=== PATIENT | male | born 1995 | race Hispanic/Latino ===

== ENCOUNTER 2017-10-24 13:45 | Emergency (ER) | payer MEDICAID, OTHER ==
[2017-10-24 13:56] VITALS: BMI 25.8
[2017-10-24 13:58] VITALS: BP 103/56; PULSE 69; RESP 17; TEMP 98.5; O2SAT 98
[2017-10-24] MEDS ORDERED: Lidocaine 5% Patch TD STA (14:29)
--- NOTE | 2017-10-24 14:35 | ED PDOC ---
HPI: General Adult Time Seen by Provider: 10/24/17 14:09 Chief Complaint (Nursing): Back Pain History Per: Patient Additional Complaint(s): Pt. states this morning he woke up with L sided lower back pain which he's been getting intermittently for the past 2 years. States he's been evaluated by a chiropractor for it in the past but has never had any imaging. States pain usually does come about when the weather gets cold. Denies trauma, numbness, tingling, incontinence (stool/urinary), hematuria, dysuria, leg pain, radiation of pain, chest pain, SOB. Of note, pt. has not taken any medications to help relieve symptoms today. Past Medical History Reviewed: Historical Data, Nursing Documentation, Vital Signs Vital Signs: Last Vital Signs Temp 98.5 F 10/24/17 13:56 Pulse 69 10/24/17 13:56 Resp 17 10/24/17 13:56 BP 103/56 L 10/24/17 13:56 Pulse Ox 98 10/24/17 13:56 - Family History Family History: States: No Known Family Hx - Immunization History Hx Tetanus Toxoid Vaccination: No Hx Influenza Vaccination: No Hx Pneumococcal Vaccination: No - Home Medications Home Medications: Ambulatory Orders Medication Instructions Recorded Cyclobenzaprine [Cyclobenzaprine 10 mg PO Q8 PRN #10 tab 10/24/17 HCl] Naproxen [Naprosyn] 500 mg PO BID PRN #10 tab 10/24/17 - Allergies Allergies/Adverse Reactions: Allergies Allergy/AdvReac Type Severity Reaction Status Date / Time No Known Allergies Allergy Verified 09/20/14 20:07 Review of Systems ROS Statement: Except As Marked, All Systems Reviewed And Found Negative Musculoskeletal: Positive for: Back Pain Physical Exam - Physical Exam Appears: Positive for: Well, Non-toxic, No Acute Distress Skin: Positive for: Normal Color, Warm. Negative for: Rash Eye Exam: Positive for: Normal appearance Cardiovascular/Chest: Positive for: Regular Rate, Rhythm Respiratory: Positive for: CNT, Normal Breath Sounds Gastrointestinal/Abdominal: Positive for: Normal Exam, Soft. Negative for: Tenderness Back: Positive for: Normal Inspection, Muscle Spasm (L paralumbar tenderness). Negative for: L CVA Tenderness, R CVA Tenderness, Vertebral Tenderness Extremity: Positive for: Normal ROM Neurologic/Psych: Positive for: Alert, Oriented - ECG O2 Sat by Pulse Oximetry: 98 - Progress ED Course And Treament: Toradol 15mg IM, flexeril 10mg PO, lidoderm patch ordered. Disposition - Clinical Impression Clinical Impression: Chronic low back pain - Patient ED Disposition Is Patient to be Admitted: No - Disposition Referrals: [facility] [Outside] Disposition: Routine/Home Disposition Time: 14:37 Condition: STABLE Additional Instructions: Follow up with [facility] for further evaluation. Prescriptions: Cyclobenzaprine [Cyclobenzaprine HCl] 10 mg PO Q8 PRN #10 tab PRN Reason: Muscle Spasm Naproxen [Naprosyn] 500 mg PO BID PRN #10 tab PRN Reason: Pain Instructions: Low Back Pain in Adults Forms: [facility] (Amharic), [facility] ED School/Work Excuse
[2017-10-24] MEDS ORDERED: Lidocaine 5% Patch TD ONE (14:52)
== END 2017-10-24 15:52 | disposition home or self-care (01) ==
LOC: H.ER 13:45
DX: G89.29 Other chronic pain (principal)
CPT/HCPCS: 96372; 99281; J1885

== ENCOUNTER 2017-12-07 19:42 | Emergency (ER) | payer OTHER ==
[2017-12-07 19:42] VITALS: BMI 25.8
[2017-12-07 20:01] VITALS: BP 101/53; PULSE 63; RESP 18; TEMP 98.3; O2SAT 100
[2017-12-07] MEDS ORDERED: Lidocaine 5% Patch TD STA (20:22)
--- NOTE | 2017-12-07 21:05 | ED PDOC ---
HPI: Back Time Seen by Provider: 12/07/17 20:06 Chief Complaint (Nursing): Back Pain Chief Complaint (Provider): Back Pain History Per: Patient History/Exam Limitations: no limitations Onset/Duration Of Symptoms: Days (x1) Current Symptoms Are (Timing): Still Present Additional Complaint(s): 22 year old male presents to the emergency department with a complaint of left- sided lower back pain ongoing intermittently for 2 years but worsen upon waking up this morning. He denies any trauma, radiation of pain, dysuria, incontinence , diarrhea, constipation, nausea or vomiting. Patient was recently seen in ED last month for similar episode, in which, he states symptoms improved on medications but did not follow up with PMD or specialists as recommended. 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 PMD: none provided Past Medical History Reviewed: Historical Data, Nursing Documentation, Vital Signs Vital Signs: Last Vital Signs Temp 98.3 F 12/07/17 19:56 Pulse 63 12/07/17 19:56 Resp 18 12/07/17 19:56 BP 101/53 L 12/07/17 19:56 Pulse Ox 100 12/07/17 19:56 - Medical History PMH: No Chronic Diseases - Surgical History Surgical History: No Surg Hx - Family History Family History: States: Unknown Family Hx - Social History Current smoker - smoking cessation education provided: No Alcohol: Occasional Drugs: Cannabis - Immunization History Hx Tetanus Toxoid Vaccination: No Hx Influenza Vaccination: No Hx Pneumococcal Vaccination: No - Home Medications Home Medications: Ambulatory Orders Medication Instructions Recorded Cyclobenzaprine [Cyclobenzaprine 10 mg PO Q8 PRN #10 tab 10/24/17 HCl] Naproxen [Naprosyn] 500 mg PO BID PRN #10 tab 10/24/17 Cyclobenzaprine [Cyclobenzaprine 10 mg PO Q8 PRN #30 tab 12/07/17 HCl] Meloxicam [Mobic] 7.5 mg PO DAILY PRN #30 tab 12/07/17 - Allergies Allergies/Adverse Reactions: Allergies Allergy/AdvReac Type Severity Reaction Status Date / Time No Known Allergies Allergy Verified 09/20/14 20:07 Review of Systems ROS Statement: Except As Marked, All Systems Reviewed And Found Negative Gastrointestinal: Negative for: Nausea, Vomiting, Diarrhea, Constipation Genitourinary Male: Negative for: Dysuria, Incontinence Musculoskeletal: Positive for: Back Pain (lower left). Negative for: Other ( trauma) Physical Exam - Reviewed Nursing Documentation Reviewed: Yes Vital Signs Reviewed: Yes - Physical Exam Appears: Positive for: Non-toxic, No Acute Distress Gastrointestinal/Abdominal: Positive for: Normal Exam, Soft. Negative for: Tenderness Back: Positive for: Muscle Spasm (left-sided). Negative for: L CVA Tenderness, R CVA Tenderness, Vertebral Tenderness Neurologic/Psych: Positive for: Alert (x3), Oriented. Negative for: Motor/ Sensory Deficits - ECG O2 Sat by Pulse Oximetry: 100 (RA) Pulse Ox Interpretation: Normal Medical Decision Making Medical Decision Making: Initial Impression: Back pain Initial Plan: * Flexeril 10mg PO * Lidoderm * Toradol 15mg IM Scribe Attestation: Documented by Lisa Bullard, acting as a scribe for Zander Lynn PA-C. Provider Scribe Attestation: All medical record entries made by the Scribe were at my direction and personally dictated by me. I have reviewed the chart and agree that the record accurately reflects my personal performance of the history, physical exam, medical decision making, and the department course for this patient. I have also personally directed, reviewed, and agree with the discharge instructions and disposition. Disposition - Clinical Impression Clinical Impression: Low back pain - Patient ED Disposition Is Patient to be Admitted: No - Disposition Referrals: [facility] [Outside] Disposition: Routine/Home Disposition Time: 21:30 Condition: IMPROVED Prescriptions: Cyclobenzaprine [Cyclobenzaprine HCl] 10 mg PO Q8 PRN #30 tab PRN Reason: Muscle Spasm Meloxicam [Mobic] 7.5 mg PO DAILY PRN #30 tab PRN Reason: Pain, Mild (1-3) Instructions: Low Back Pain (DC) Forms: [facility] (Mauritanian), [facility] ED School/Work Excuse Print Language: GERMAN
[2017-12-07] MEDS ORDERED: Lidocaine 5% Patch TD ONE (21:14)
== END 2017-12-07 21:50 | disposition home or self-care (01) ==
LOC: H.ER 19:42
DX: M54.5 Low back pain (principal)
CPT/HCPCS: 96372; 99282; J1885

== ENCOUNTER 2018-01-08 23:21 | Emergency (ER) | payer OTHER ==
[2018-01-08 23:22] VITALS: BMI 25.8
[2018-01-08 23:34] VITALS: BP 111/67; PULSE 66; RESP 16; TEMP 98.2; O2SAT 99
--- NOTE | 2018-01-09 00:02 | ED PDOC ---
HPI: Skin/Bite Injury Time Seen by Provider: 01/08/18 23:39 Chief Complaint (Nursing): Abnormal Skin Integrity Chief Complaint (Provider): right arm pain History Per: Patient History/Exam Limitations: no limitations Onset/Duration Of Symptoms: Days (1) Current Symptoms Are (Timing): Still Present Quality Of Symptoms: Painful Additional Complaint(s): 22 y/o male presents for evaluation of painful lump to right arm x 1 day. Denies fever, drainage from site, numbness/weakness right upper extremity, limitation of movement. Past Medical History Reviewed: Historical Data, Nursing Documentation, Vital Signs Vital Signs: Last Vital Signs Temp 98.2 F 01/08/18 23:29 Pulse 66 01/08/18 23:29 Resp 16 01/08/18 23:29 BP 111/67 01/08/18 23:29 Pulse Ox 99 01/08/18 23:29 - Medical History PMH: No Chronic Diseases - Surgical History Surgical History: No Surg Hx - Family History Family History: States: Unknown Family Hx - Immunization History Hx Tetanus Toxoid Vaccination: No Hx Influenza Vaccination: No Hx Pneumococcal Vaccination: No - Home Medications Home Medications: Ambulatory Orders Medication Instructions Recorded Cyclobenzaprine [Cyclobenzaprine 10 mg PO Q8 PRN #10 tab 10/24/17 HCl] Naproxen [Naprosyn] 500 mg PO BID PRN #10 tab 10/24/17 Cyclobenzaprine [Cyclobenzaprine 10 mg PO Q8 PRN #30 tab 12/07/17 HCl] Meloxicam [Mobic] 7.5 mg PO DAILY PRN #30 tab 12/07/17 Cephalexin [Keflex] 500 mg PO Q6 #27 capsule 01/09/18 - Allergies Allergies/Adverse Reactions: Allergies Allergy/AdvReac Type Severity Reaction Status Date / Time No Known Allergies Allergy Verified 01/08/18 23:29 Review of Systems ROS Statement: Except As Marked, All Systems Reviewed And Found Negative Musculoskeletal: Positive for: Arm Pain Skin: Positive for: Lesions Physical Exam - Reviewed Nursing Documentation Reviewed: Yes Vital Signs Reviewed: Yes - Physical Exam Appears: Positive for: Well, Non-toxic, No Acute Distress Skin: Positive for: Normal Color, Rash (palpable tender lump noted medial aspect right upper arm; mild surrounding erythema. No drainage, fluctuance) Extremity: Positive for: Normal ROM - ECG O2 Sat by Pulse Oximetry: 99 - Progress ED Course And Treament: Patient educated on findings, discharged with rx Keflex (dose given in ED) Advised warm compresses Ibuprofen/tylenol PRN pain. Return precautions given Disposition - Clinical Impression Clinical Impression: Abscess - Patient ED Disposition Is Patient to be Admitted: No Counseled Patient/Family Regarding: Studies Performed, Diagnosis, Need For Followup, Rx Given - Disposition Referrals: Herrera Mccoy MD [Primary Care Provider] - Disposition: Routine/Home Disposition Time: 00:03 Condition: IMPROVED Prescriptions: Cephalexin [Keflex] 500 mg PO Q6 #27 capsule Instructions: Skin Abscess Forms: [facility] (Anguillan), [facility] ED School/Work Excuse
== END 2018-01-09 00:27 | disposition home or self-care (01) ==
LOC: H.ER 23:21
DX: L02.413 Cutaneous abscess of right upper limb (principal)

== ENCOUNTER 2018-03-05 19:28 | Emergency (ER) | payer OTHER ==
[2018-03-05 19:49] VITALS: BMI 22.6
[2018-03-05 19:52] VITALS: BP 100/58; PULSE 60; RESP 19; TEMP 98.3; O2SAT 100
--- NOTE | 2018-03-05 20:25 | ED PDOC ---
HPI: Headache Time Seen by Provider: 03/05/18 19:53 Chief Complaint (Nursing): Headache Chief Complaint (Provider): headache History Per: Patient History/Exam Limitations: no limitations Onset/Duration Of Symptoms: Days (x1) Current Symptoms Are (Timing): Better Additional Complaint(s): Dionte Edmonds is a 23 year old male, with no significant past medical history, who presents to the emergency department complaining of a headache associated with dizziness and light sensitivity onset since yesterday. Patient states around 20:00 yesterday he developed a frontal headache, he took Excedrin at 22: 30 with no relief. However, he decided to rest today with improvement of symptoms. Patient also reports he hasn't been sleeping well and states he recently began working overnight. He did not take any medications prior to arrival. Patient denies any recent history of migraines but states he used to have them when he was young. He denies any current headache, dizziness, vision changes, nausea, vomit or other medical complaints. PMD: None provided. Past Medical History Reviewed: Historical Data, Nursing Documentation, Vital Signs Vital Signs: Last Vital Signs Temp 98.3 F 03/05/18 19:49 Pulse 60 03/05/18 19:49 Resp 19 03/05/18 19:49 BP 100/58 L 03/05/18 19:49 Pulse Ox 100 03/05/18 19:49 - Medical History PMH: No Chronic Diseases - Surgical History Surgical History: No Surg Hx - Family History Family History: States: Unknown Family Hx - Social History Current smoker - smoking cessation education provided: No Alcohol: Social Drugs: Cannabis - Immunization History Hx Tetanus Toxoid Vaccination: No Hx Influenza Vaccination: No Hx Pneumococcal Vaccination: No - Home Medications Home Medications: Ambulatory Orders Medication Instructions Recorded Cyclobenzaprine [Cyclobenzaprine 10 mg PO Q8 PRN #10 tab 10/24/17 HCl] Naproxen [Naprosyn] 500 mg PO BID PRN #10 tab 10/24/17 Cyclobenzaprine [Cyclobenzaprine 10 mg PO Q8 PRN #30 tab 12/07/17 HCl] Meloxicam [Mobic] 7.5 mg PO DAILY PRN #30 tab 12/07/17 Cephalexin [Keflex] 500 mg PO Q6 #27 capsule 01/09/18 - Allergies Allergies/Adverse Reactions: Allergies Allergy/AdvReac Type Severity Reaction Status Date / Time No Known Allergies Allergy Verified 01/08/18 23:29 Review of Systems ROS Statement: Except As Marked, All Systems Reviewed And Found Negative Eyes: Negative for: Vision Change Gastrointestinal: Negative for: Nausea, Vomiting Neurological: Negative for: Headache (resolved), Dizziness (resolved) Physical Exam - Reviewed Nursing Documentation Reviewed: Yes Vital Signs Reviewed: Yes - Physical Exam Appears: Positive for: Non-toxic, No Acute Distress Head Exam: Positive for: ATRAUMATIC, NORMAL INSPECTION, NORMOCEPHALIC Skin: Positive for: Normal Color, Warm, Dry Eye Exam: Positive for: Normal appearance, EOMI, PERRL ENT: Positive for: Normal ENT Inspection Neck: Positive for: Painless ROM Cardiovascular/Chest: Positive for: Regular Rate, Rhythm. Negative for: Murmur Respiratory: Positive for: Normal Breath Sounds. Negative for: Respiratory Distress Extremity: Positive for: Normal ROM (upper and lower extremities). Negative for : Deformity, Swelling Neurologic/Psych: Positive for: Alert, Oriented, Gait (steady). Negative for: Motor/Sensory Deficits - ECG O2 Sat by Pulse Oximetry: 100 (RA) Pulse Ox Interpretation: Normal Medical Decision Making Medical Decision Making: Time: 19:53 Initial Impression: headache Initial Plan: imaging studies not clinically indicated at this time pt without any physical complaints at this time, no medical intervention needed Scribe Attestation: Documented by Doron Garcia, acting as a scribe for Otilia Wilkinson PA-C Provider Scribe Attestation: All medical record entries made by the Scribe were at my direction and personally dictated by me. I have reviewed the chart and agree that the record accurately reflects my personal performance of the history, physical exam, medical decision making, and the department course for this patient. I have also personally directed, reviewed, and agree with the discharge instructions and disposition. Disposition - Clinical Impression Clinical Impression: Headache - Disposition Disposition: Routine/Home Disposition Time: 20:46 Condition: STABLE Instructions: Tension Headache Forms: [facility] (Luxembourgish), [facility] ED School/Work Excuse
== END 2018-03-05 21:33 | disposition home or self-care (01) ==
LOC: H.ER 19:28
DX: R51 Headache (principal); R42 Dizziness and giddiness

== ENCOUNTER 2018-03-20 13:42 | Emergency (ER) | payer MEDICAID, OTHER ==
[2018-03-20 13:42] VITALS: BMI 22.6
[2018-03-20 13:50] VITALS: BP 109/66; PULSE 67; RESP 19; TEMP 98.2; O2SAT 96
[2018-03-20] MEDS: Sodium Chloride 0.9% 1,000 ML IV STA (15:01)
[2018-03-20 15:42] LABS: BASO % 0.3 % (0.0-2.0); EOS # 0.1 K/uL (0.0-0.7); EOS % 0.9 % (0.0-4.0); HEMOGLOBIN 15.5 g/dL (12.0-18.0); LYMPH # 0.9 K/uL (1.0-4.3); LYMPH % 6.3 % (20.0-40.0); MEAN CELL VOLUME 86.1 fl (80.0-94.0); MEAN CORPUSCULAR HGB CONC 32.5 g/dL (33.0-37.0); MEAN PLATELET VOLUME 9.9 fl (7.2-11.7); MONO # 0.8 K/uL (0.0-0.8); MONO % 5.9 % (0.0-10.0); NEUT # 11.7 K/uL (1.8-7.0); NEUT % 86.6 % (50.0-75.0); NRBC % 0.1 % (0.0-0.0); PLATELET COUNT 183 K/uL (130-400); RBC 5.55 Mil/uL (4.40-5.90); RED CELL DISTRIBUTION WIDTH 15.9 % (11.5-14.5); WHITE BLOOD COUNT 13.6 K/uL (4.8-10.8)
--- NOTE | 2018-03-20 16:14 | ED PDOC ---
HPI: Abdomen Time Seen by Provider: 03/20/18 14:10 Chief Complaint (Nursing): Abdominal Pain Chief Complaint (Provider): abdominal pain History Per: Patient History/Exam Limitations: no limitations Onset/Duration Of Symptoms: Days (x3) Outside of [place] travel?: No Current Symptoms Are (Timing): Still Present Location Of Pain/Discomfort: Other (lower) Quality Of Discomfort: Cramping Associated Symptoms: Diarrhea (non bloody). denies: Fever, Chills, Nausea, Vomiting Additional Complaint(s): Dionte Edmonds is a 23 year old male, with no significant past medical history, who presents to the emergency department complaining of a crampy lower abdominal pain associated with multiple episodes of non bloody diarrhea onset for the past x3 days. Patient denies any vomiting, nausea, fever, chills, melena , hematochezia, sick contacts or recent travel. No further medical complaints. PMD: Herrera Mccoy Past Medical History Reviewed: Historical Data, Nursing Documentation, Vital Signs Vital Signs: Last Vital Signs Temp 98.2 F 03/20/18 13:48 Pulse 67 03/20/18 13:48 Resp 19 03/20/18 13:48 BP 109/66 03/20/18 13:48 Pulse Ox 96 03/20/18 19:03 - Medical History PMH: No Chronic Diseases - Surgical History Surgical History: No Surg Hx - Family History Family History: States: Unknown Family Hx - Social History Current smoker - smoking cessation education provided: No Alcohol: Social Drugs: Cannabis - Immunization History Hx Tetanus Toxoid Vaccination: No Hx Influenza Vaccination: No Hx Pneumococcal Vaccination: No - Home Medications Home Medications: Ambulatory Orders Medication Instructions Recorded Cyclobenzaprine [Cyclobenzaprine 10 mg PO Q8 PRN #10 tab 10/24/17 HCl] Naproxen [Naprosyn] 500 mg PO BID PRN #10 tab 10/24/17 Cyclobenzaprine [Cyclobenzaprine 10 mg PO Q8 PRN #30 tab 12/07/17 HCl] Meloxicam [Mobic] 7.5 mg PO DAILY PRN #30 tab 12/07/17 Cephalexin [Keflex] 500 mg PO Q6 #27 capsule 01/09/18 Ciprofloxacin [Cipro] 500 mg PO BID #14 tab 03/20/18 Dicyclomine [Bentyl] 20 mg PO TID PRN #15 tab 03/20/18 metroNIDAZOLE [Flagyl] 500 mg PO TID #21 tab 03/20/18 - Allergies Allergies/Adverse Reactions: Allergies Allergy/AdvReac Type Severity Reaction Status Date / Time No Known Allergies Allergy Verified 03/20/18 13:48 Review of Systems ROS Statement: Except As Marked, All Systems Reviewed And Found Negative Constitutional: Negative for: Fever, Chills Gastrointestinal: Positive for: Abdominal Pain (lower crampy), Diarrhea (non bloody). Negative for: Nausea, Vomiting, Melena, Hematochezia Physical Exam - Reviewed Nursing Documentation Reviewed: Yes Vital Signs Reviewed: Yes - Physical Exam Appears: Positive for: No Acute Distress Head Exam: Positive for: ATRAUMATIC, NORMAL INSPECTION, NORMOCEPHALIC Skin: Positive for: Normal Color, Warm, Dry. Negative for: Rash Eye Exam: Positive for: Normal appearance, EOMI, PERRL ENT: Positive for: Normal ENT Inspection (mucous membrane moist) Neck: Positive for: Painless ROM Cardiovascular/Chest: Positive for: Regular Rate, Rhythm. Negative for: Murmur Respiratory: Positive for: Normal Breath Sounds. Negative for: Respiratory Distress Gastrointestinal/Abdominal: Positive for: Normal Exam, Soft. Negative for: Tenderness Extremity: Positive for: Normal ROM (upper and lower extremities). Negative for : Deformity, Swelling Neurologic/Psych: Positive for: Alert, Oriented (x3). Negative for: Motor/ Sensory Deficits - Laboratory Results Result Diagrams: 03/20/18 15:35 03/20/18 15:35 - ECG O2 Sat by Pulse Oximetry: 96 (RA) Pulse Ox Interpretation: Normal Medical Decision Making Medical Decision Making: Time: 14:10 Initial Impression: abdominal pain Initial Plan: --CMP --CBC w/ differential --Bentyl 20 mg PO --Sodium Chloride 1,000 ml IV 1,000 mls/hr --Urinalysis --Reevaluation WBC: 13.6 Pt. reports abd pain has improved drastically but is still present. CT abd/pelvis w/ IV contrast ordered. 1728 CT abd/pelvis w/ IV contrast: Findings consistent with enterocolitis without mechanical obstruction. Cipro IV, flagyl IV, blood culture x 2 ordered. Pt. refused to wait for flagyl IV to finish and to start cipro IV. No diarrhea while in ED. ----- Scribe Attestation: Documented by Doron Garcia, acting as a scribe for Zander Lynn PA-C. Provider Scribe Attestation: All medical record entries made by the Scribe were at my direction and personally dictated by me. I have reviewed the chart and agree that the record accurately reflects my personal performance of the history, physical exam, medical decision making, and the department course for this patient. I have also personally directed, reviewed, and agree with the discharge instructions and disposition. Disposition - Clinical Impression Clinical Impression: Enterocolitis - Patient ED Disposition Is Patient to be Admitted: No - Disposition Referrals: [facility] [Outside] [facility] [Outside] Disposition: Routine/Home Disposition Time: 17:30 Condition: IMPROVED Additional Instructions: DIONTE EDMONDS, thank you for letting us take care of you today. Your provider was Phylicia Mahoney MD and you were treated for ABD PAIN. The emergency medical care you received today was directed at your acute symptoms. If you were prescribed any medication, please fill it and take as directed. It may take several days for your symptoms to resolve. Return to the Emergency Department if your symptoms worsen, do not improve, or if you have any other problems. Please contact your doctor or call one of the physicians/clinics you have been referred to that are listed on the Patient Visit Information form that is included in your discharge packet. Bring any paperwork you were given at discharge with you along with any medications you are taking to your follow up visit. Our treatment cannot replace ongoing medical care by a primary care provider outside of the emergency department. Thank you for allowing the [facility] team to be part of your care today. If you had an X-Ray or CT scan: A Radiologist will review the ED reading if any change in treatment is needed we will contact you. If you had a blood, urine, or wound culture: It will take several days for the results, if any change in treatment is needed we will contact you. If you had an STI test: It will take 48 hours for the results. Please call after 1 week if you have not heard back. Prescriptions: Ciprofloxacin [Cipro] 500 mg PO BID #14 tab Dicyclomine [Bentyl] 20 mg PO TID PRN #15 tab PRN Reason: abdominal pain metroNIDAZOLE [Flagyl] 500 mg PO TID #21 tab Instructions: Diarrhea in Adolescents and Adults Forms: [employer] (Romanian), [facility] ED School/Work Excuse Print Language: BERMUDIAN
[2018-03-20] MEDS ORDERED: Iohexol 300 100 ML IJ ONE (16:21)
[2018-03-20] MEDS ORDERED: Sodium Chloride 0.9% 50 ML IV ONE (16:21)
[2018-03-20 16:32] LABS: ALB/GLOB RATIO 1.3 (1.0-2.1); ALT/SGPT 25 U/L (21-72); AST/SGOT 26 U/L (17-59); BLOOD UREA NITROGEN 15 mg/dl (9-20); CALCIUM 9.8 mg/dL (8.4-10.2); GFR AFRICAN-AMERICAN > 60; GFR NON-AFRICAN AMERICAN > 60
[2018-03-20 17:17] LABS: BANDS 1 % (0-2); BASOPHIL 1 % (0-2); EOSINOPHIL 1 % (0-7); HYPERSEGMENTATION PRESENT; LYMPHOCYTE 14 % (20-50); MONOCYTE 6 % (0-10); NEUTROPHIL 77 % (42-75); PLATELET ESTIMATE NORMAL (NORMAL); TOTAL CELLS COUNTED 100
[2018-03-20 17:18] LABS: MICROCYTOSIS SLIGHT
--- NOTE | 2018-03-20 17:31 | CT ---
Date of service: 03/20/2018 PROCEDURE: CT Abdomen and Pelvis with contrast HISTORY: b/l lower abdominal pain, diarrhea, leukocytosis COMPARISON: 03/26/2016 TECHNIQUE: Contrast dose: 90 cc Omnipaque 300 Radiation dose: Total exam DLP = 291.31 mGy-cm. This CT exam was performed using one or more of the following dose reduction techniques: Automated exposure control, adjustment of the mA and/or kV according to patient size, and/or use of iterative reconstruction technique. FINDINGS: LOWER THORAX: Unremarkable. LIVER: Unremarkable. No gross lesion or ductal dilatation. GALLBLADDER AND BILE DUCTS: Unremarkable. PANCREAS: Unremarkable. No gross lesion or ductal dilatation. SPLEEN: Unremarkable. ADRENALS: Unremarkable. No mass. KIDNEYS AND URETERS: Unremarkable. No hydronephrosis. No solid mass. VASCULATURE: Unremarkable. No aortic aneurysm. BOWEL: Fluid-filled loops of small bowel and colon consistent with diarrheal state. Contrast-enhancing characteristics of small bowel and colon suggests enterocolitis. This is diffuse without a focal abnormality. There is no evidence of mechanical obstruction. APPENDIX: Normal appendix. PERITONEUM: Unremarkable. No free fluid. No free air. LYMPH NODES: Unremarkable. No enlarged lymph nodes. BLADDER: Unremarkable. REPRODUCTIVE: Unremarkable. BONES: No acute fracture. OTHER FINDINGS: None. IMPRESSION: Findings consistent with enterocolitis without mechanical obstruction.
[2018-03-20] MEDS ORDERED: metroNIDAZOLE 500mg/100ml NS 100 ML IVPB ONE (18:02)
[2018-03-20] MEDS: metroNIDAZOLE 500mg/100ml NS 100 ML IVPB STA (18:06)
[2018-03-20] MEDS: Ciprofloxacin 400mg/200ml D5W 400 MG/200 ML BAG IVPB STA (19:06)
== END 2018-03-20 19:07 | disposition home or self-care (01) ==
LOC: H.ER 13:42
DX: K52.9 Noninfective gastroenteritis and colitis, unspecified (principal)
CPT/HCPCS: 74177; 80053; 85025; 87040; 99283; J7030; Q9967

== ENCOUNTER 2018-04-19 10:40 | Emergency (ER) | payer SELFPAY ==
[2018-04-19 10:43] VITALS: BMI 24.2
--- NOTE | 2018-04-19 10:55 | ED PDOC ---
HPI: General Adult Time Seen by Provider: 04/19/18 10:54 Chief Complaint (Provider): vomiting History Per: Patient Additional Complaint(s): 23-year-old male presents with vomiting and diarrhea that started last night. Patient states symptoms began after he ate a frozen dinner. He denies fever or chills. Patient vomited 3 times this morning but was able to tolerate some juice since emesis. He rates abdominal pain as a 4 out of 10. Denies recent travel. He denies any blood in stool. Patient states it gastroenteritis about one month ago and today symptoms feel similar to that. PMD: Dr. Mccoy, [facility] Past Medical History Reviewed: Historical Data, Nursing Documentation, Vital Signs Vital Signs: Last Vital Signs Temp 98 F 04/19/18 10:43 Pulse 69 04/19/18 10:43 Resp 20 04/19/18 10:43 BP 133/65 04/19/18 10:43 Pulse Ox 99 04/19/18 12:54 - Medical History PMH: No Chronic Diseases - Surgical History Surgical History: No Surg Hx - Family History Family History: States: No Known Family Hx - Living Arrangements Living Arrangements: With Friends/Others - Social History Current smoker - smoking cessation education provided: No Alcohol: None Drugs: Cannabis - Home Medications Home Medications: Ambulatory Orders Medication Instructions Recorded Cyclobenzaprine [Cyclobenzaprine 10 mg PO Q8 PRN #10 tab 10/24/17 HCl] Naproxen [Naprosyn] 500 mg PO BID PRN #10 tab 10/24/17 Cyclobenzaprine [Cyclobenzaprine 10 mg PO Q8 PRN #30 tab 12/07/17 HCl] Meloxicam [Mobic] 7.5 mg PO DAILY PRN #30 tab 12/07/17 Cephalexin [Keflex] 500 mg PO Q6 #27 capsule 01/09/18 Ciprofloxacin [Cipro] 500 mg PO BID #14 tab 03/20/18 Dicyclomine [Bentyl] 20 mg PO TID PRN #15 tab 03/20/18 metroNIDAZOLE [Flagyl] 500 mg PO TID #21 tab 03/20/18 Dicyclomine [Bentyl] 10 mg PO QID PRN #20 cap 04/19/18 Ondansetron [Zofran Odt] 4 mg PO ASDIR PRN #20 odt 04/19/18 - Allergies Allergies/Adverse Reactions: Allergies Allergy/AdvReac Type Severity Reaction Status Date / Time No Known Allergies Allergy Verified 03/20/18 13:48 Review of Systems ROS Statement: Except As Marked, All Systems Reviewed And Found Negative Constitutional: Negative for: Fever, Chills, Weakness Respiratory: Negative for: Cough Gastrointestinal: Positive for: Nausea, Vomiting, Abdominal Pain, Diarrhea. Negative for: Constipation, Melena, Hematochezia, Hematemesis, Rectal Pain Genitourinary Male: Negative for: Dysuria Physical Exam - Reviewed Nursing Documentation Reviewed: Yes Vital Signs Reviewed: Yes - Physical Exam Appears: Positive for: Well, Non-toxic, No Acute Distress Skin: Positive for: Normal Color. Negative for: Rash Eye Exam: Positive for: Normal appearance Cardiovascular/Chest: Positive for: Regular Rate, Rhythm Respiratory: Positive for: Normal Breath Sounds. Negative for: Wheezing, Respiratory Distress Gastrointestinal/Abdominal: Positive for: Soft. Negative for: Tenderness, Distended, Guarding, Rebound Back: Negative for: L CVA Tenderness, R CVA Tenderness Extremity: Positive for: Normal ROM Neurologic/Psych: Positive for: Alert, Oriented - Laboratory Results Result Diagrams: 04/19/18 11:30 04/19/18 11:30 Urine dip results: Negative for: Leukocyte Esterase, Blood, Nitrate, Ketones, Glucose, Bilirubin, Protein - ECG O2 Sat by Pulse Oximetry: 99 Pulse Ox Interpretation: Normal Medical Decision Making Medical Decision Makin23 year old with vomiting and diarrhea Plan: CBC CMP Lipase urine dip IVF IV zofran Patient states he feels better after meds were given. Nausea has resolved. Patient able to tolerate juice and water in ED with no further emesis. Prescription in for Zofran and Bentyl provided. [place] diet instructions given. Patient was advised to follow up with PMD in 2-3 days or return to ED any time if acutely worse. Disposition - Clinical Impression Clinical Impression: Gastroenteritis - Patient ED Disposition Is Patient to be Admitted: No Counseled Patient/Family Regarding: Studies Performed, Diagnosis, Need For Followup, Rx Given - Disposition Referrals: Herrera Mccoy MD [Family Provider] - Disposition: Routine/Home Disposition Time: 12:52 Condition: STABLE Additional Instructions: Take prescription meds as directed. Follow bland diet and drink plenty of clear liquids. Follow-up with primary doctor in 2-3 days or return to emergency room any time if acutely worse. Prescriptions: Dicyclomine [Bentyl] 10 mg PO QID PRN #20 cap PRN Reason: Gi Distress Ondansetron [Zofran Odt] 4 mg PO ASDIR PRN #20 odt PRN Reason: Nausea/Vomiting Instructions: [place] Diet, Viral Gastroenteritis, Adult (DC) Forms: [facility] ED School/Work Excuse Results - Lab Results Lab Results: 04/19/18 04/19/18 11:30 11:30 WBC 8.4 RBC 5.13 Hgb 14.4 Hct 43.8 MCV 85.5 MCH 28.0 MCHC 32.8 L RDW 15.2 H Plt Count 154 MPV 9.9 Neut % (Auto) 65.8 Lymph % (Auto) 25.1 Emanuel % (Auto) 6.9 Eos % (Auto) 1.4 Baso % (Auto) 0.8 Neut # (Auto) 5.5 Lymph # (Auto) 2.1 Emanuel # (Auto) 0.6 Eos # (Auto) 0.1 Baso # (Auto) 0.1 Sodium 141 Potassium 4.5 Chloride 104 Carbon Dioxide 28 Anion Gap 14 BUN 14 Creatinine 0.9 Est GFR ( Amer) > 60 Est GFR (Non-Af Amer) > 60 Random Glucose 100 Calcium 9.7 Total Bilirubin 0.3 AST 16 L D ALT 25 Alkaline Phosphatase 50 Total Protein 7.7 Albumin 4.7 Globulin 3.0 Albumin/Globulin Ratio 1.6 Lipase 91
[2018-04-19] MEDS: Sodium Chloride 0.9% 1,000 ML IV STA (11:28)
[2018-04-19 11:40] LABS: BASO # 0.1 K/uL (0.0-0.2); BASO % 0.8 % (0.0-2.0); EOS # 0.1 K/uL (0.0-0.7); EOS % 1.4 % (0.0-4.0); HEMOGLOBIN 14.4 g/dL (12.0-18.0); LYMPH # 2.1 K/uL (1.0-4.3); LYMPH % 25.1 % (20.0-40.0); MEAN CELL VOLUME 85.5 fl (80.0-94.0); MEAN CORPUSCULAR HGB CONC 32.8 g/dL (33.0-37.0); MEAN PLATELET VOLUME 9.9 fl (7.2-11.7); MONO # 0.6 K/uL (0.0-0.8); MONO % 6.9 % (0.0-10.0); NEUT # 5.5 K/uL (1.8-7.0); NEUT % 65.8 % (50.0-75.0); NRBC % 0.1 % (0.0-0.0); RBC 5.13 Mil/uL (4.40-5.90); RED CELL DISTRIBUTION WIDTH 15.2 % (11.5-14.5); WHITE BLOOD COUNT 8.4 K/uL (4.8-10.8)
[2018-04-19 12:08] LABS: ALB/GLOB RATIO 1.6 (1.0-2.1); ALBUMIN 4.7 g/dL (3.5-5.0); ALT/SGPT 25 U/L (21-72); AST/SGOT 16 U/L (17-59); BLOOD UREA NITROGEN 14 mg/dl (9-20); CALCIUM 9.7 mg/dL (8.4-10.2); GFR NON-AFRICAN AMERICAN > 60; LIPASE 91 U/L (23-300)
[2018-04-19 13:46] VITALS: BP 112/72; PULSE 71; RESP 14; TEMP 98.1; O2SAT 100
== END 2018-04-19 13:45 | disposition home or self-care (01) ==
LOC: H.ER 10:40
DX: K52.9 Noninfective gastroenteritis and colitis, unspecified (principal)
CPT/HCPCS: 80053; 83690; 85025; 99284; J2405; J7030

== ENCOUNTER 2018-06-18 08:25 | Emergency (ER) | payer SELFPAY ==
[2018-06-18 08:25] VITALS: BMI 24.2
[2018-06-18 08:47] VITALS: RESP 18; TEMP 97.8
[2018-06-18] MEDS ORDERED: Sodium Chloride 0.9% 1,000 ML IV STA (09:23)
--- NOTE | 2018-06-18 09:42 | ED PDOC ---
HPI: Abdomen Time Seen by Provider: 06/18/18 09:06 Chief Complaint (Nursing): GI Problem Chief Complaint (Provider): nausea History Per: Patient History/Exam Limitations: no limitations Current Symptoms Are (Timing): Intermittent Episodes Context: Food Severity: Mild Location Of Pain/Discomfort: Periumbilical Associated Symptoms: Nausea, Loss Of Appetite. denies: Vomiting, Diarrhea, Back Pain, Constipation, Urinary Symptoms Exacerbating Factors: None Alleviating Factors: None Last Bowel Movement: Today Additional Complaint(s): 23yo male c/o nausea since yesterday. Had mild abd pain at work yesterday which caused him to leave early, pain then resolved but nausea persists today. Denies vomiting, urinary changes, fever, dizziness, diarrhea or current abdominal pain. Past Medical History Reviewed: Historical Data, Nursing Documentation, Vital Signs Vital Signs: Last Vital Signs Temp 97.8 F 06/18/18 08:46 Pulse 78 06/18/18 08:46 Resp 18 06/18/18 08:46 BP 117/70 06/18/18 08:46 Pulse Ox 97 06/18/18 08:46 - Medical History PMH: No Chronic Diseases - Family History Family History: States: Unknown Family Hx - Social History Current smoker - smoking cessation education provided: Yes Alcohol: None Drugs: Cannabis (dailly) - Immunization History Hx Tetanus Toxoid Vaccination: No Hx Influenza Vaccination: No Hx Pneumococcal Vaccination: No - Home Medications Home Medications: Ambulatory Orders Medication Instructions Recorded Cyclobenzaprine [Cyclobenzaprine 10 mg PO Q8 PRN #10 tab 10/24/17 HCl] Naproxen [Naprosyn] 500 mg PO BID PRN #10 tab 10/24/17 Cyclobenzaprine [Cyclobenzaprine 10 mg PO Q8 PRN #30 tab 12/07/17 HCl] Meloxicam [Mobic] 7.5 mg PO DAILY PRN #30 tab 12/07/17 Cephalexin [Keflex] 500 mg PO Q6 #27 capsule 01/09/18 Ciprofloxacin [Cipro] 500 mg PO BID #14 tab 03/20/18 Dicyclomine [Bentyl] 20 mg PO TID PRN #15 tab 03/20/18 metroNIDAZOLE [Flagyl] 500 mg PO TID #21 tab 03/20/18 Dicyclomine [Bentyl] 10 mg PO QID PRN #20 cap 04/19/18 Ondansetron [Zofran Odt] 4 mg PO ASDIR PRN #20 odt 04/19/18 Ondansetron ODT [Zofran ODT] 4 mg PO Q6 PRN #10 odt 06/18/18 - Allergies Allergies/Adverse Reactions: Allergies Allergy/AdvReac Type Severity Reaction Status Date / Time No Known Allergies Allergy Verified 03/20/18 13:48 Review of Systems ROS Statement: Except As Marked, All Systems Reviewed And Found Negative Constitutional: Negative for: Fever, Weight loss ENT: Negative for: Ear Pain Cardiovascular: Negative for: Chest Pain Respiratory: Negative for: Shortness of Breath Gastrointestinal: Positive for: Nausea, Abdominal Pain. Negative for: Diarrhea, Constipation Genitourinary Male: Negative for: Dysuria Musculoskeletal: Negative for: Neck Pain Skin: Negative for: Rash, Lesions Neurological: Negative for: Weakness, Numbness Psych: Negative for: Anxiety Physical Exam - Reviewed Nursing Documentation Reviewed: Yes Vital Signs Reviewed: Yes - Physical Exam Appears: Positive for: Well, Non-toxic, No Acute Distress Head Exam: Positive for: ATRAUMATIC, NORMAL INSPECTION, NORMOCEPHALIC Skin: Positive for: Normal Color, Warm, DRY Eye Exam: Positive for: EOMI, Normal appearance, PERRL ENT: Positive for: Normal ENT Inspection Neck: Positive for: Normal, Painless ROM Cardiovascular/Chest: Positive for: Regular Rate, Rhythm Respiratory: Positive for: CNT, Normal Breath Sounds Gastrointestinal/Abdominal: Positive for: Soft. Negative for: Tenderness, Guarding Back: Positive for: Normal Inspection Extremity: Positive for: Normal ROM Neurologic/Psych: Positive for: Alert, Oriented. Negative for: Motor/Sensory Deficits - Laboratory Results Result Diagrams: 06/18/18 09:55 06/18/18 09:55 - ECG O2 Sat by Pulse Oximetry: 97 Medical Decision Making Medical Decision Making: Abdomen nontender now including RLQ and LLQ, RUQ. Check labs, initiate zofran, IVF. Discussed daily THC exposure and risks developing hyperemesis of cannabinoids. LABS REVIEWED and unremarkable Re-eval 1220p improved, tolerating PO, nause mostly gone and denies abd pain. Abd exam negative for tenderness in all 4 quadrants. Disposition - Clinical Impression Clinical Impression: Nausea - Patient ED Disposition Is Patient to be Admitted: No Counseled Patient/Family Regarding: Studies Performed, Diagnosis, Need For Followup, Rx Given - Disposition Referrals: [facility] [Outside] Disposition: Routine/Home Disposition Time: 12:25 Condition: STABLE Additional Instructions: Recommend bland diet today, use zofran ODT every 4-6hrs as needed for nausea. RETURN TO ER FOR ANY RETURN OF PAIN, FEVER, WEAKNESS, VOMITING OR ANY CONCERN. Prescriptions: Ondansetron ODT [Zofran ODT] 4 mg PO Q6 PRN #10 odt PRN Reason: Nausea/Vomiting Instructions: Nausea and Vomiting, Adult (DC) Forms: [employer] (Afghan)
[2018-06-18 10:23] LABS: BASO # 0.1 K/uL (0.0-0.2); BASO % 0.7 % (0.0-2.0); EOS # 0.2 K/uL (0.0-0.7); EOS % 1.8 % (0.0-4.0); LYMPH # 2.6 K/uL (1.0-4.3); MEAN CORPUSCULAR HEMOGLOBIN 28.2 pg (27.0-31.0); MEAN CORPUSCULAR HGB CONC 33.2 g/dL (33.0-37.0); MEAN PLATELET VOLUME 10.1 fl (7.2-11.7); MONO # 0.8 K/uL (0.0-0.8); MONO % 9.9 % (0.0-10.0); NEUT # 4.9 K/uL (1.8-7.0); NEUT % 57.6 % (50.0-75.0); NRBC % 0.1 % (0.0-0.0); RBC 4.95 Mil/uL (4.40-5.90); RED CELL DISTRIBUTION WIDTH 15.4 % (11.5-14.5); WHITE BLOOD COUNT 8.5 K/uL (4.8-10.8)
[2018-06-18 10:28] LABS: URINE BILIRUBIN NEGATIVE (NEGATIVE); URINE BLOOD NEGATIVE (NEGATIVE); URINE CLARITY SLIGHTY-CLOUDY (Clear); URINE COLOR YELLOW (YELLOW); URINE GLUCOSE (UA) NEG (Normal); URINE LEUKOCYTE ESTERASE NEG Leu/uL (Negative); URINE PROTEIN 30 mg/dL (NEGATIVE)
[2018-06-18 10:30] LABS: ALB/GLOB RATIO 1.3 (1.0-2.1); ALBUMIN 4.5 g/dL (3.5-5.0); ALT/SGPT 22 U/L (21-72); AST/SGOT 25 U/L (17-59); BLOOD UREA NITROGEN 14 mg/dl (9-20); CALCIUM 9.7 mg/dL (8.4-10.2); GFR NON-AFRICAN AMERICAN > 60; LIPASE 131 U/L (23-300)
[2018-06-18 12:58] VITALS: BP 114/58; PULSE 66; O2SAT 99
== END 2018-06-18 12:58 | disposition home or self-care (01) ==
LOC: H.ER 08:25
DX: R11.0 Nausea (principal)
CPT/HCPCS: 80053; 81003; 83690; 85025; 96360; 99284; J2405; J7030

== ENCOUNTER 2018-07-13 08:01 | Emergency (ER) | payer OTHER ==
[2018-07-13 08:01] VITALS: BMI 24.2
[2018-07-13 08:11] VITALS: BP 107/59; TEMP 98.1; O2SAT 98
[2018-07-13] MEDS ORDERED: Naproxen 500 MG TAB PO ONE (08:49)
[2018-07-13] MEDS ORDERED: Naproxen 500 MG TAB PO STA (08:50)
--- NOTE | 2018-07-13 08:51 | ED PDOC ---
HPI: Headache Time Seen by Provider: 07/13/18 08:27 Chief Complaint (Nursing): Headache Chief Complaint (Provider): Headache History Per: Patient History/Exam Limitations: no limitations Onset/Duration Of Symptoms: Hrs (x 1) Current Symptoms Are (Timing): Still Present Quality: "Pain" Associated Symptoms: denies: Photophobia, Blurred Vision, Nausea, Vomiting Additional Complaint(s): 23 year old with a constant, frontal headache for 1 hour. Patient reports headaches in the past that are usually resolved with Excedrin. He has not taking any medications. Denies nausea, vomiting, fever, neck stiffness, vision changes and photophobia. PMD: Dr. Herrera Mccoy Past Medical History Reviewed: Historical Data, Nursing Documentation, Vital Signs Vital Signs: Last Vital Signs Temp 98.1 F 07/13/18 08:10 Pulse 58 L 07/13/18 08:10 Resp 18 07/13/18 08:10 BP 107/59 L 07/13/18 08:10 Pulse Ox 98 07/13/18 08:10 - Medical History PMH: No Chronic Diseases - Surgical History Surgical History: No Surg Hx - Family History Family History: States: Unknown Family Hx - Social History Drugs: Cannabis - Immunization History Hx Tetanus Toxoid Vaccination: No Hx Influenza Vaccination: No Hx Pneumococcal Vaccination: No - Home Medications Home Medications: Ambulatory Orders Medication Instructions Recorded Cyclobenzaprine [Cyclobenzaprine 10 mg PO Q8 PRN #10 tab 10/24/17 HCl] Naproxen [Naprosyn] 500 mg PO BID PRN #10 tab 10/24/17 Cyclobenzaprine [Cyclobenzaprine 10 mg PO Q8 PRN #30 tab 12/07/17 HCl] Meloxicam [Mobic] 7.5 mg PO DAILY PRN #30 tab 12/07/17 Cephalexin [Keflex] 500 mg PO Q6 #27 capsule 01/09/18 Ciprofloxacin [Cipro] 500 mg PO BID #14 tab 03/20/18 Dicyclomine [Bentyl] 20 mg PO TID PRN #15 tab 03/20/18 metroNIDAZOLE [Flagyl] 500 mg PO TID #21 tab 03/20/18 Dicyclomine [Bentyl] 10 mg PO QID PRN #20 cap 04/19/18 Ondansetron [Zofran Odt] 4 mg PO ASDIR PRN #20 odt 04/19/18 Ondansetron ODT [Zofran ODT] 4 mg PO Q6 PRN #10 odt 06/18/18 Ibuprofen [Motrin] 600 mg PO Q6H PRN #20 tab 07/13/18 - Allergies Allergies/Adverse Reactions: Allergies Allergy/AdvReac Type Severity Reaction Status Date / Time No Known Allergies Allergy Verified 03/20/18 13:48 Review of Systems ROS Statement: Except As Marked, All Systems Reviewed And Found Negative Constitutional: Negative for: Fever Eyes: Negative for: Vision Change, Other (photophobia) Gastrointestinal: Negative for: Nausea, Vomiting Neurological: Positive for: Headache (frontal ) Physical Exam - Reviewed Nursing Documentation Reviewed: Yes Vital Signs Reviewed: Yes - Physical Exam Appears: Positive for: No Acute Distress (on phone ) Head Exam: Positive for: ATRAUMATIC, NORMAL INSPECTION, NORMOCEPHALIC Skin: Positive for: Normal Color, Warm, Dry Eye Exam: Positive for: EOMI, Normal appearance, PERRL Neck: Positive for: Normal, Painless ROM, Supple Cardiovascular/Chest: Positive for: Regular Rate, Rhythm. Negative for: Murmur Respiratory: Positive for: Normal Breath Sounds. Negative for: Respiratory Distress Gastrointestinal/Abdominal: Positive for: Normal Exam, Soft. Negative for: Tenderness Extremity: Positive for: Normal ROM (upper and lower extremities). Negative for: Deformity Neurologic/Psych: Positive for: Alert, Oriented. Negative for: Motor/Sensory Deficits - ECG O2 Sat by Pulse Oximetry: 98 (RA ) Pulse Ox Interpretation: Normal Medical Decision Making Medical Decision Makin:45 Impression: headache Initial Plan: --CT Head --Naproxen 500 mg PO 10:[address] FINDINGS: HEMORRHAGE: No intracranial hemorrhage. BRAIN: No mass effect or edema. No atrophy or chronic microvascular ischemic changes. VENTRICLES: No obstructive hydrocephalus. Slight asymmetry of the lateral the ventricles right-side larger than left likely an anatomic variation.. CALVARIUM: Unremarkable. PARANASAL SINUSES: Minor mucosal thickening no within the ethmoid air complex. MASTOID AIR CELLS: .The mastoid air complexes are sclerotic and underpneumatized with mild mucoperiosteal inflammatory changes within the residual mastoid air cells. OTHER FINDINGS: None. IMPRESSION: No acute intracranial hemorrhage. Scribe Attestation: Documented by Denise Flores, acting as a scribe for Melany Hay MD Provider Scribe Attestation: All medical record entries made by the Scribe were at my direction and personally dictated by me. I have reviewed the chart and agree that the record accurately reflects my personal performance of the history, physical exam, medical decision making, and the department course for this patient. I have also personally directed, reviewed, and agree with the discharge instructions and disposition. Disposition - Clinical Impression Clinical Impression: Acute headache - Disposition Referrals: [facility] [Outside] Disposition: Routine/Home Disposition Time: 11:09 Condition: STABLE Prescriptions: Ibuprofen [Motrin] 600 mg PO Q6H PRN #20 tab PRN Reason: Pain, Moderate (4-7) Instructions: Acute Headache (ED) Forms: [employer] (Croatian), [facility] ED School/Work Excuse
--- NOTE | 2018-07-13 10:43 | CT ---
Date of service: 07/13/2018 PROCEDURE: CT HEAD WITHOUT CONTRAST. HISTORY: Frontal ESPARZA COMPARISON: None available. TECHNIQUE: Axial computed tomography images were obtained through the head/brain without intravenous contrast. Radiation dose: Total exam DLP = 788.47 mGy-cm. This CT exam was performed using one or more of the following dose reduction techniques: Automated exposure control, adjustment of the mA and/or kV according to patient size, and/or use of iterative reconstruction technique. FINDINGS: HEMORRHAGE: No intracranial hemorrhage. BRAIN: No mass effect or edema. No atrophy or chronic microvascular ischemic changes. VENTRICLES: No obstructive hydrocephalus. Slight asymmetry of the lateral the ventricles right-side larger than left likely an anatomic variation.. CALVARIUM: Unremarkable. PARANASAL SINUSES: Minor mucosal thickening no within the ethmoid air complex. MASTOID AIR CELLS: .The mastoid air complexes are sclerotic and underpneumatized with mild mucoperiosteal inflammatory changes within the residual mastoid air cells. OTHER FINDINGS: None. IMPRESSION: No acute intracranial hemorrhage.
[2018-07-13 11:31] VITALS: PULSE 72; RESP 16
== END 2018-07-13 11:30 | disposition home or self-care (01) ==
LOC: H.ER 08:01
DX: R51 Headache (principal)

== ENCOUNTER 2018-07-31 06:21 | Emergency (ER) | payer OTHER ==
[2018-07-31 06:21] VITALS: BMI 24.2
[2018-07-31] MEDS: Sodium Chloride 0.9% 1,000 ML IV STA (08:08)
--- NOTE | 2018-07-31 09:34 | ED PDOC ---
HPI: Headache Time Seen by Provider: 07/31/18 07:16 Chief Complaint (Nursing): Headache Chief Complaint (Provider): Headache History Per: Patient History/Exam Limitations: no limitations Onset/Duration Of Symptoms: Days (x2) Current Symptoms Are (Timing): Still Present Additional Complaint(s): 23 year old male presenting for evaluation of a headache since last night. Patient reports a history of sinus headaches, states his current headache is characteristic of his headaches in the past, and reports this headache is not the worse in his life. Patient states the headache was present last night under his infraorbitals, but is currently across the top of his head. Patient denies any posterior headache. Patient states he usually takes Excedrin for his headache, but was unable to last night. Patient states he woke up with the headache still present this morning, prompting him to present to the ED for evaluation. Patient otherwise denies any fevers, chills, nausea, vomiting, chest pain, shortness of breath, vision changes, dizziness, weakness, numbness, or tingling. Patient further denies any difficulty ambulating. Of note, patient states he has never been formally diagnosed by a specialist. No neck pain. PMD: Dr. Herrera Mccoy Past Medical History Reviewed: Historical Data, Nursing Documentation, Vital Signs Vital Signs: Last Vital Signs Temp 97.5 F L 07/31/18 06:34 Pulse 69 07/31/18 06:34 Resp 16 07/31/18 06:34 BP 124/69 07/31/18 06:34 Pulse Ox 100 07/31/18 06:34 - Medical History Other PMH: headaches - Surgical History Surgical History: No Surg Hx - Family History Family History: States: Unknown Family Hx - Social History Current smoker - smoking cessation education provided: No Alcohol: None Drugs: Cannabis - Immunization History Hx Tetanus Toxoid Vaccination: No Hx Influenza Vaccination: No Hx Pneumococcal Vaccination: No - Home Medications Home Medications: Ambulatory Orders Medication Instructions Recorded Cyclobenzaprine [Cyclobenzaprine 10 mg PO Q8 PRN #10 tab 10/24/17 HCl] Naproxen [Naprosyn] 500 mg PO BID PRN #10 tab 10/24/17 Cyclobenzaprine [Cyclobenzaprine 10 mg PO Q8 PRN #30 tab 12/07/17 HCl] Meloxicam [Mobic] 7.5 mg PO DAILY PRN #30 tab 04/20/18 Cephalexin [Keflex] 500 mg PO Q6 #27 capsule 01/09/18 Ciprofloxacin [Cipro] 500 mg PO BID #14 tab 03/20/18 Dicyclomine [Bentyl] 20 mg PO TID PRN #15 tab 03/20/18 metroNIDAZOLE [Flagyl] 500 mg PO TID #21 tab 03/20/18 Dicyclomine [Bentyl] 10 mg PO QID PRN #20 cap 04/19/18 Ondansetron [Zofran Odt] 4 mg PO ASDIR PRN #20 odt 04/19/18 Ondansetron ODT [Zofran ODT] 4 mg PO Q6 PRN #10 odt 06/18/18 Ibuprofen [Motrin] 600 mg PO Q6H PRN #20 tab 07/13/18 Ibuprofen [Motrin] 600 mg PO TID 7 Days tab 07/31/18 - Allergies Allergies/Adverse Reactions: Allergies Allergy/AdvReac Type Severity Reaction Status Date / Time No Known Allergies Allergy Verified 03/20/18 13:48 Review of Systems ROS Statement: Except As Marked, All Systems Reviewed And Found Negative Constitutional: Negative for: Fever, Chills Cardiovascular: Negative for: Chest Pain Respiratory: Negative for: Shortness of Breath Gastrointestinal: Negative for: Nausea, Vomiting Neurological: Positive for: Headache. Negative for: Weakness, Numbness, Dizziness Physical Exam - Reviewed Nursing Documentation Reviewed: Yes Vital Signs Reviewed: Yes - Physical Exam Appears: Positive for: Non-toxic, No Acute Distress Head Exam: Positive for: ATRAUMATIC, NORMAL INSPECTION, NORMOCEPHALIC Skin: Positive for: Normal Color, Warm, Dry. Negative for: Rash Eye Exam: Positive for: Normal appearance, EOMI, PERRL ENT: Positive for: Normal ENT Inspection Neck: Positive for: Normal, Painless ROM, Supple Cardiovascular/Chest: Positive for: Regular Rate, Rhythm. Negative for: Murmur Respiratory: Positive for: Normal Breath Sounds. Negative for: Respiratory Distress Gastrointestinal/Abdominal: Positive for: Normal Exam, Soft. Negative for: Tenderness Back: Positive for: Normal Inspection. Negative for: L CVA Tenderness, R CVA Tenderness, Vertebral Tenderness Extremity: Positive for: Normal ROM. Negative for: Pedal Edema, Deformity Neurologic/Psych: Positive for: Alert, Oriented (x3). Negative for: Motor/Sensory Deficits - ECG O2 Sat by Pulse Oximetry: 100 (RA) Pulse Ox Interpretation: Normal - Progress ED Course And Treament: 1024: Feels much better. AAOx3. Pain free. Tolerated PO. Ambulated with no issues. Fu with pcp. Medical Decision Making Medical Decision Makin Plan: -Reglan 10mg IV -1L NS IV -Reevaluation Scribe Attestation: Documented by Silverio Villalba, acting as a scribe for Hermelindo Palomino MD. Provider Scribe Attestation: All medical record entries made by the Scribe were at my direction and personally dictated by me. I have reviewed the chart and agree that the record accurately reflects my personal performance of the history, physical exam, medical decision making, and the department course for this patient. I have also personally directed, reviewed, and agree with the discharge instructions and disposition. Disposition - Clinical Impression Clinical Impression: Headache - Patient ED Disposition Is Patient to be Admitted: No Counseled Patient/Family Regarding: Diagnosis, Need For Followup, Rx Given - Disposition Referrals: [facility] [Outside] - 08/01/18 Disposition: Routine/Home Disposition Time: 10:25 Condition: STABLE Additional Instructions: Return if not better in 3 days. Prescriptions: Ibuprofen [Motrin] 600 mg PO TID 7 Days tab Instructions: Headache, Adult (DC) Forms: [employer] (Ukrainian), [facility] ED School/Work Excuse
[2018-07-31 10:34] VITALS: BP 115/63; PULSE 7; RESP 18; TEMP 97.6; O2SAT 99
== END 2018-07-31 10:36 | disposition home or self-care (01) ==
LOC: H.ER 06:21
DX: R51 Headache (principal)
CPT/HCPCS: 96360; 99285; J2765; J7030

== ENCOUNTER 2018-09-10 17:30 | Emergency (ER) | payer OTHER ==
[2018-09-10 17:31] VITALS: BMI 24.2
[2018-09-10] MEDS ORDERED: Naproxen 500 MG TAB PO ONE ×2 (18:08→18:42)
--- NOTE | 2018-09-10 19:00 | ED PDOC ---
HPI: General Adult Time Seen by Provider: 09/10/18 18:00 Chief Complaint (Nursing): ENT Problem Chief Complaint (Provider): Flu-like Symptoms History Per: Patient History/Exam Limitations: no limitations Onset/Duration Of Symptoms: Hrs (earlier today) Current Symptoms Are (Timing): Still Present Additional Complaint(s): 23 year old male presents to the ED for evaluation of a sore throat, mild cough, and congestion beginning this morning. Otherwise, denies fever and other complaints. PMD: Herrera Mccoy Past Medical History Reviewed: Historical Data, Nursing Documentation, Vital Signs Vital Signs: Last Vital Signs Temp 97.8 F 09/10/18 17:44 Pulse 58 L 09/10/18 17:44 Resp 16 09/10/18 17:44 BP 105/67 09/10/18 17:44 Pulse Ox 99 09/10/18 17:44 - Medical History PMH: No Chronic Diseases - Surgical History Surgical History: No Surg Hx - Family History Family History: States: Unknown Family Hx - Immunization History Hx Tetanus Toxoid Vaccination: No Hx Influenza Vaccination: No Hx Pneumococcal Vaccination: No - Home Medications Home Medications: Ambulatory Orders Medication Instructions Recorded Cyclobenzaprine [Cyclobenzaprine 10 mg PO Q8 PRN #10 tab 10/24/17 HCl] Naproxen [Naprosyn] 500 mg PO BID PRN #10 tab 10/24/17 Cyclobenzaprine [Cyclobenzaprine 10 mg PO Q8 PRN #30 tab 12/07/17 HCl] Meloxicam [Mobic] 7.5 mg PO DAILY PRN #30 tab 12/07/17 Cephalexin [Keflex] 500 mg PO Q6 #27 capsule 01/09/18 Ciprofloxacin [Cipro] 500 mg PO BID #14 tab 03/20/18 Dicyclomine [Bentyl] 20 mg PO TID PRN #15 tab 03/20/18 metroNIDAZOLE [Flagyl] 500 mg PO TID #21 tab 03/20/18 Dicyclomine [Bentyl] 10 mg PO QID PRN #20 cap 04/19/18 Ondansetron [Zofran Odt] 4 mg PO ASDIR PRN #20 odt 04/19/18 Ondansetron ODT [Zofran ODT] 4 mg PO Q6 PRN #10 odt 06/18/18 Ibuprofen [Motrin] 600 mg PO Q6H PRN #20 tab 07/13/18 Ibuprofen [Motrin] 600 mg PO TID 7 Days tab 07/31/18 Oseltamivir Phosphate [Tamiflu] 75 mg PO BID #9 capsule 09/10/18 - Allergies Allergies/Adverse Reactions: Allergies Allergy/AdvReac Type Severity Reaction Status Date / Time No Known Allergies Allergy Verified 09/10/18 17:44 Review of Systems ROS Statement: Except As Marked, All Systems Reviewed And Found Negative Constitutional: Negative for: Fever ENT: Positive for: Nose Congestion, Throat Pain Respiratory: Positive for: Cough Physical Exam - Reviewed Nursing Documentation Reviewed: Yes - Physical Exam Appears: Positive for: No Acute Distress Skin: Positive for: Normal Color, Warm. Negative for: Rash Eye Exam: Positive for: EOMI, Normal appearance, PERRL ENT: Positive for: Normal ENT Inspection Cardiovascular/Chest: Positive for: Regular Rate, Rhythm Respiratory: Positive for: Normal Breath Sounds. Negative for: Respiratory Distress - ECG O2 Sat by Pulse Oximetry: 99 (RA) Pulse Ox Interpretation: Normal Medical Decision Making Medical Decision Making: Time: 1807 Initial Impression: flu-like symptoms Initial Plan: --Naproxen 500mg PO --Influenza A B swab --Rapid strep test 1937 Rapid flu, rapid strep: negative. Tamiflu PO ordered. Scribe Attestation: Documented by Alondra Florez, acting as a scribe for Zander Lynn PA-C. Provider Scribe Attestation: All medical record entries made by the Scribe were at my direction and personally dictated by me. I have reviewed the chart and agree that the record accurately reflects my personal performance of the history, physical exam, medical decision making, and the department course for this patient. I have also personally directed, reviewed, and agree with the discharge instructions and disposition. Disposition - Clinical Impression Clinical Impression: Influenza-like illness - Patient ED Disposition Is Patient to be Admitted: No - Disposition Referrals: LTAC[facility] within [facility] [Outside] Disposition: Routine/Home Disposition Time: 19:42 Condition: IMPROVED Additional Instructions: FOLLOW UP WITH [facility] FOR FURTHER EVALUATION RETURN TO ED IMMEDIATELY IF SYMPTOMS WORSEN MITCH CERDA, thank you for letting us take care of you today. Your provider was Otiila Hendrix MD and you were treated for SORE THROAT. The emergency medical care you received today was directed at your acute symptoms. If you were prescribed any medication, please fill it and take as directed. It may take several days for your symptoms to resolve. Return to the Emergency Department if your symptoms worsen, do not improve, or if you have any other problems. Please contact your doctor or call one of the physicians/clinics you have been referred to that are listed on the Patient Visit Information form that is included in your discharge packet. Bring any paperwork you were given at discharge with you along with any medications you are taking to your follow up visit. Our treatment cannot replace ongoing medical care by a primary care provider outside of the emergency department. Thank you for allowing the [facility] team to be part of your care today. If you had an X-Ray or CT scan: A Radiologist will review the ED reading if any change in treatment is needed we will contact you. If you had a blood, urine, or wound culture: It will take several days for the results, if any change in treatment is needed we will contact you. If you had an STI test: It will take 48 hours for the results. Please call after 1 week if you have not heard back. Prescriptions: Oseltamivir Phosphate [Tamiflu] 75 mg PO BID #9 capsule Instructions: Flu, Adult (DC) Forms: [employer] (Arabic), [facility] ED School/Work Excuse
[2018-09-10 20:01] VITALS: BP 109/61; PULSE 61; RESP 18; TEMP 98; O2SAT 100
== END 2018-09-10 19:55 | disposition home or self-care (01) ==
LOC: H.ER 17:30
DX: J11.1 Influenza due to unidentified influenza virus with other respiratory manifestations (principal)

== ENCOUNTER 2018-10-02 16:09 | Emergency (ER) | payer SELFPAY ==
[2018-10-02 16:09] VITALS: BMI 24.2
[2018-10-02 16:15] VITALS: BP 115/60; PULSE 76; RESP 16; TEMP 97.5; O2SAT 99
[2018-10-02] MEDS ORDERED: Tdap Vaccine 0.5 ml Vial (10-64 yrs) IM ONE ×2 (17:24→18:18)
[2018-10-02] MEDS ORDERED: Tmp-Smz 800 mg-160 mg DS Tab PO STA (17:24)
--- NOTE | 2018-10-02 17:53 | ED PDOC ---
Lower Extremity Pain/Injury Time Seen by Provider: 10/02/18 16:44 Chief Complaint (Nursing): Abnormal Skin Integrity Chief Complaint (Provider): Abnormal Skin Integrity History Per: Patient History/Exam Limitations: no limitations Onset/Duration Of Symptoms: Days (x 2) Current Symptoms Are (Timing): Still Present Pain Scale Rating Of: 5 Additional Complaint(s): 23 year old male with no significant medical history presents to the ED for evaluation of a bump to the back of his left ankle. He noticed the bump yesterday, but it did not begin hurting until today due to his work boots. Patient took no medications prior to arrival. He admits to a history of abscesses in the past. Patient reportedly tried to "pop it" at home without success, worsening his pain. Denies fever. Tetanus is not up to date. PMD: Dr. Herrera Mccoy Past Medical History Reviewed: Historical Data, Nursing Documentation, Vital Signs Vital Signs: Last Vital Signs Temp 97.5 F L 10/02/18 16:12 Pulse 76 10/02/18 16:12 Resp 16 10/02/18 16:12 BP 115/60 10/02/18 16:12 Pulse Ox 99 10/02/18 16:12 - Medical History PMH: No Chronic Diseases - Surgical History Surgical History: No Surg Hx - Family History Family History: States: Unknown Family Hx - Immunization History Hx Tetanus Toxoid Vaccination: No - Home Medications Home Medications: Ambulatory Orders Medication Instructions Recorded Cyclobenzaprine [Cyclobenzaprine 10 mg PO Q8 PRN #10 tab 10/24/17 HCl] RX: Naproxen [Naprosyn] 500 mg PO BID PRN #10 tab 10/24/17 Cyclobenzaprine [Cyclobenzaprine 10 mg PO Q8 PRN #30 tab 12/07/17 HCl] Meloxicam [Mobic] 7.5 mg PO DAILY PRN #30 tab 12/07/17 Cephalexin [Keflex] 500 mg PO Q6 #27 capsule 01/09/18 Ciprofloxacin [Cipro] 500 mg PO BID #14 tab 03/20/18 Dicyclomine [Bentyl] 20 mg PO TID PRN #15 tab 03/20/18 metroNIDAZOLE [Flagyl] 500 mg PO TID #21 tab 03/20/18 Dicyclomine [Bentyl] 10 mg PO QID PRN #20 cap 04/19/18 Ondansetron [Zofran Odt] 4 mg PO ASDIR PRN #20 odt 04/19/18 Ondansetron ODT [Zofran ODT] 4 mg PO Q6 PRN #10 odt 06/18/18 Ibuprofen [Motrin] 600 mg PO Q6H PRN #20 tab 07/13/18 Ibuprofen [Motrin] 600 mg PO TID 7 Days tab 07/31/18 Oseltamivir Phosphate [Tamiflu] 75 mg PO BID #9 capsule 09/10/18 RX: Ibuprofen [Motrin Tab] 600 mg PO Q6 PRN #20 tab 10/02/18 Sulfamethoxazole/Trimethoprim 1 tab PO BID #14 tab 10/02/18 [Bactrim DS 800 mg-160 mg] - Allergies Allergies/Adverse Reactions: Allergies Allergy/AdvReac Type Severity Reaction Status Date / Time No Known Allergies Allergy Verified 10/02/18 16:12 Review of Systems ROS Statement: Except As Marked, All Systems Reviewed And Found Negative Constitutional: Negative for: Fever Musculoskeletal: Positive for: Foot Pain (bump on the back of his left ankle) Physical Exam - Reviewed Nursing Documentation Reviewed: Yes Vital Signs Reviewed: Yes - Physical Exam Comments: GENERAL APPEARANCE: Patient is awake, alert, oriented x 3, in no acute distress, resting comfortably. SKIN: Warm, dry; (-) cyanosis. NECK: Supple, FROM ENT: Mucus membranes moist. Airway patent, (-) Stridor. CHEST AND RESPIRATORY: (-) rales, (-) rhonchi, (-) wheezes; breath sounds equal bilaterally. Respirations nonlabored. HEART AND CARDIOVASCULAR: (-) irregularity EXTREMITIES: Left ankle: (+) localized tenderness to posterior ankle, (+) pustule to the posterior left ankle with mild surrounding erythema, (-) swelling, (-) drainage (-) crusting (-) distal neurovascular deficit. Rest of lower extremity: full ROM (-) tenderness. Achilles tendon intact. Sensation intact throughout (+) distal pulses NEURO AND PSYCH: Mental status as above. Gait steady. Speech: clear. (-) facial asymmetry - ECG O2 Sat by Pulse Oximetry: 99 (RA) Pulse Ox Interpretation: Normal Medical Decision Making Medical Decision Makin:30 Clinical Impression: early cellulitis/ abscess of lower extremity Initial Plan: --Bactrim DS 1 tab --Motrin 600 mg PO --Tetanus 0.5 ml IM --Re-evaluation 1824 On re-evaluation, patient reports improvement of symptoms. On exam, patient remains AAOx3, in no acute distress. Vitals stable. Lab/Diagnostic results d/w the patient in great detail. Diagnosis of early abscess and cellulitis of lower extremity d/w the patient. Based on history, exam and diagnostic results, plan will be for outpatient follow up with PMD. Return parameters discussed. Patient instructed to follow-up with pmd / referral provided / the clinic in 1- 2 days without fail. Advised to take medication as prescribed. Return to the emergency room at any time for any new or worsening symptoms. Patient states he fully agrees with and understands discharge instructions. States that he agrees with the plan and disposition. Verbalized and repeated discharge instructions and plan. I have given the patient opportunity to ask any additional questions. Scribe Attestation: Documented by Denise Flores, acting as a scribe for Cinthya Webb PA-C Provider Scribe Attestation: All medical record entries made by the Scribe were at my direction and personally dictated by me. I have reviewed the chart and agree that the record accurately reflects my personal performance of the history, physical exam, medical decision making, and the department course for this patient. I have also personally directed, reviewed, and agree with the discharge instructions and disposition. Disposition - Clinical Impression Clinical Impression: Cellulitis and abscess of leg - Patient ED Disposition Is Patient to be Admitted: No Counseled Patient/Family Regarding: Studies Performed, Diagnosis, Need For Followup, Rx Given - Disposition Referrals: Herrera Mccoy MD [Family Provider] - Disposition: Routine/Home Disposition Time: 18:25 Condition: STABLE Additional Instructions: The emergency medical care you received today was directed at your acute symptoms. If you were prescribed any medication, please fill it and take as directed. It may take several days for your symptoms to resolve. Return to the Emergency Department if your symptoms worsen, do not improve, or if you have any other problems. Please contact your doctor in 2 days for re-evaluation and follow up / or call one of the physicians/clinics you have been referred to that are listed on the Patient Visit Information form that is included in your discharge packet. Bring any paperwork you were given at discharge with you along with any medications you are taking to your follow up visit. Our treatment cannot replace ongoing medical care by a primary care provider (PCP) outside of the emergency department. Prescriptions: RX: Ibuprofen [Motrin Tab] 600 mg PO Q6 PRN #20 tab PRN Reason: Pain, Moderate (4-7) Sulfamethoxazole/Trimethoprim [Bactrim DS 800 mg-160 mg] 1 tab PO BID #14 tab Instructions: Cellulitis and Erysipelas (Skin Infections), Boil, Skin Abscess Forms: [employer] (Thai), [facility] ED School/Work Excuse Print Language: VENEZUELAN - POA Present On Arrival: None
[2018-10-02] MEDS ORDERED: Tmp-Smz 800 mg-160 mg DS Tab ONE (18:17)
== END 2018-10-02 18:35 | disposition home or self-care (01) ==
LOC: H.ER 16:09
DX: L03.116 Cellulitis of left lower limb (principal)

== ENCOUNTER 2018-12-08 06:16 | Emergency (ER) | payer SELFPAY ==
[2018-12-08 06:31] VITALS: BMI 23.7
[2018-12-08 06:35] VITALS: RESP 18; TEMP 97.8; O2SAT 99
--- NOTE | 2018-12-08 07:11 | ED PDOC ---
HPI: Back Time Seen by Provider: 12/08/18 07:01 Chief Complaint (Nursing): Back Pain Chief Complaint (Provider): Back Pain History Per: Patient History/Exam Limitations: no limitations Onset/Duration Of Symptoms: Days (x1 ) Current Symptoms Are (Timing): Still Present Additional Complaint(s): Patient is a 23 year old male with a past medical history of back injury, who presents to the emergency department complaining of left flank pain since last night. 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 The pain does not radiate to the legs and he denies having any weakness, paresthesia or shortness of breath. PMD: Herrera Mccoy Past Medical History Reviewed: Historical Data, Nursing Documentation, Vital Signs Vital Signs: Last Vital Signs Temp 97.8 F 12/08/18 06:31 Pulse 71 12/08/18 06:31 Resp 18 12/08/18 06:31 BP 112/67 12/08/18 06:31 Pulse Ox 99 12/08/18 06:31 - Medical History PMH: Back Problems - Surgical History Surgical History: No Surg Hx - Family History Family History: States: Unknown Family Hx - Immunization History Hx Tetanus Toxoid Vaccination: No Hx Influenza Vaccination: No Hx Pneumococcal Vaccination: No - Home Medications Home Medications: Ambulatory Orders Medication Instructions Recorded Cyclobenzaprine [Cyclobenzaprine 10 mg PO Q8 PRN #10 tab 10/24/17 HCl] Naproxen [Naprosyn] 500 mg PO BID PRN #10 tab 10/24/17 Cyclobenzaprine [Cyclobenzaprine 10 mg PO Q8 PRN #30 tab 12/07/17 HCl] Meloxicam [Mobic] 7.5 mg PO DAILY PRN #30 tab 12/07/17 Cephalexin [Keflex] 500 mg PO Q6 #27 capsule 01/09/18 Ciprofloxacin [Cipro] 500 mg PO BID #14 tab 03/20/18 Dicyclomine [Bentyl] 20 mg PO TID PRN #15 tab 03/20/18 metroNIDAZOLE [Flagyl] 500 mg PO TID #21 tab 03/20/18 Dicyclomine [Bentyl] 10 mg PO QID PRN #20 cap 04/19/18 Ondansetron [Zofran Odt] 4 mg PO ASDIR PRN #20 odt 04/19/18 Ondansetron ODT [Zofran ODT] 4 mg PO Q6 PRN #10 odt 06/18/18 Ibuprofen [Motrin] 600 mg PO Q6H PRN #20 tab 07/13/18 Ibuprofen [Motrin] 600 mg PO TID 7 Days tab 07/31/18 Oseltamivir Phosphate [Tamiflu] 75 mg PO BID #9 capsule 09/10/18 Ibuprofen [Motrin Tab] 600 mg PO Q6 PRN #20 tab 10/02/18 Sulfamethoxazole/Trimethoprim 1 tab PO BID #14 tab 10/02/18 [Bactrim DS 800 mg-160 mg] Cyclobenzaprine [Cyclobenzaprine 10 mg PO Q8 #12 tab 12/08/18 HCl] Naproxen [Naprosyn] 500 mg PO Q12H #20 tab 12/08/18 - Allergies Allergies/Adverse Reactions: Allergies Allergy/AdvReac Type Severity Reaction Status Date / Time No Known Allergies Allergy Verified 12/08/18 06:31 Review of Systems ROS Statement: Except As Marked, All Systems Reviewed And Found Negative Respiratory: Negative for: Shortness of Breath Musculoskeletal: Positive for: Back Pain (left flank pain) Neurological: Negative for: Weakness ((-) paresthesia) Physical Exam - Reviewed Nursing Documentation Reviewed: Yes Vital Signs Reviewed: Yes - Physical Exam Appears: Positive for: Non-toxic, No Acute Distress Head Exam: Positive for: ATRAUMATIC, NORMOCEPHALIC Cardiovascular/Chest: Positive for: Regular Rate, Rhythm. Negative for: Murmur Respiratory: Positive for: Normal Breath Sounds. Negative for: Respiratory Distress Back: Positive for: Muscle Spasm, Other (Left parathoracic and rib tenderness with muscle spasm). Negative for: L CVA Tenderness, R CVA Tenderness, Vertebral Tenderness ((-) deformity) Neurological/Psych: Positive for: Alert, Oriented. Negative for: Motor/Sensory Deficits - ECG O2 Sat by Pulse Oximetry: 99 (RA) Pulse Ox Interpretation: Normal Medical Decision Making Medical Decision Making: Time: 704 Impression: Muscle strain, will do urine dip to see for hematuria. Plan: --ED urine dipstick --Toradol 30 mg IM Scribe Attestation: Documented by Beka Richard, acting as a scribe Belen Molina MD. Provider Scribe Attestation: All medical record entries made by the Scribe were at my direction and personally dictated by me. I have reviewed the chart and agree that the record accurately reflects my personal performance of the history, physical exam, medical decision making, and the department course for this patient. I have also personally directed, reviewed, and agree with the discharge instructions and disposition Disposition - Clinical Impression Clinical Impression: Back strain - Patient ED Disposition Is Patient to be Admitted: No - Disposition Referrals: [facility] [Outside] Disposition: Routine/Home Disposition Time: 07:15 Condition: FAIR Prescriptions: Cyclobenzaprine [Cyclobenzaprine HCl] 10 mg PO Q8 #12 tab Naproxen [Naprosyn] 500 mg PO Q12H #20 tab Instructions: Muscle Strain Forms: [employer] (Uzbek)
[2018-12-08 08:06] VITALS: BP 114/66; PULSE 62
== END 2018-12-08 07:54 | disposition home or self-care (01) ==
LOC: H.ER 06:16
DX: S39.012A Strain of muscle, fascia and tendon of lower back, initial encounter (principal); X50.9XXA Other and unspecified overexertion or strenuous movements or postures, initial encounter; Y99.0 Civilian activity done for income or pay
CPT/HCPCS: 96372; 99283; J1885

== ENCOUNTER 2018-12-28 02:02 | Emergency (ER) | payer OTHER ==
[2018-12-28 02:04] VITALS: BMI 23.7
[2018-12-28 02:22] VITALS: BP 117/55; PULSE 76; RESP 16; TEMP 98.4; O2SAT 99
[2018-12-28] MEDS ORDERED: Mupirocin 2% Cream TOP STA (02:28)
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
== END 2018-12-28 05:58 | disposition home or self-care (01) ==
LOC: H.ER 02:02
DX: Z77.098 Contact with and (suspected) exposure to other hazardous, chiefly nonmedicinal, chemicals (principal); Y99.0 Civilian activity done for income or pay